=== PATIENT | male | born 1965 | race Hispanic/Latino ===

== ENCOUNTER 2018-04-14 02:20 | Emergency (ER) | payer OTHER ==
[~2018-04-14] VITALS: Ht 172.7 cm; Wt 98.0 kg
[2018-04-14] MEDS ORDERED: PANTOPRAZOLE 40 MG 10ML VIAL IV ONE (03:00)
[2018-04-14] MEDS ORDERED: FAMOTIDINE 20 MG/2 ML VIAL IV ONE (03:00)
[2018-04-14] MEDS ORDERED: ASPIRIN 81 MG CHEW TAB PO ONE (03:15)
[2018-04-14] MEDS ORDERED: PANTOPRAZOLE SO40 MG PO (03:34)
[2018-04-14] MEDS ORDERED: PEPCID20 MG PO (03:34)
--- NOTE | 2018-04-14 04:16 | Diagnostic Imaging Report ---
CXR 2 VIEW -6, Technique: CXR 2 VIEW - HOPD Comparison: None Clinical history: Right-sided chest pain, sternum pain DISCUSSION: -For cardiac silhouette. Moderate hiatal hernia. -Linear basilar atelectasis or scar. No consolidation or edema. -No pleural effusion or pneumothorax. IMPRESSION: No acute abnormality Signed by: Dr Terri Joel MD on 04/14/2018 4:12 AM
== END 2018-04-14 04:00 | disposition home or self-care (01) ==
LOC: FSED 02:20
DX: R07.89 Other chest pain (principal); K21.9 Gastro-esophageal reflux disease without esophagitis; R73.03 Prediabetes
CPT/HCPCS: 71046; 80048; 80076; 81003; 82553; 83880; 84484; 85025; 85379; 85610; 93005; 99284